=== PATIENT | female | born 1995 | race Two or more races ===

== ENCOUNTER 2018-02-08 12:54 | Outpatient (CLI) | payer OTHER ==
[~2018-02-08 12:54] MED LIST: BENADRYL50 MG
== END 2018-02-09 10:18 | disposition home or self-care (01) ==
LOC: OBS/DEL 12:54
DX: Z34.82 Encounter for supervision of other normal pregnancy, second trimester (principal); S80.02XA Contusion of left knee, initial encounter; S80.01XA Contusion of right knee, initial encounter; W18.39XA Other fall on same level, initial encounter; Y93.89 Activity, other specified; Y92.89 Other specified places as the place of occurrence of the external cause; Y99.8 Other external cause status

== ENCOUNTER 2018-03-08 00:22 | Inpatient (IN) | payer OTHER ==
[~2018-03-08] VITALS: Ht 162.6 cm; Wt 59.0 kg
[2018-03-08] MEDS ORDERED: PRENATAL TABLE1 EAC2 PO (11:14)
== END 2018-03-10 08:21 | disposition home or self-care (01) | DRG 780 ==
LOC: OBS/DEL 00:22 → LDR 10:23 → OB/GYN 03-09 09:18
PROC: BY4DZZZ Ultrasonography of Second Trimester, Multiple Gestation (ICD-10-PCS; principal; 2018-03-08)
PROC: 4A1HXCZ Monitoring of Products of Conception, Cardiac Rate, External Approach (ICD-10-PCS; 2018-03-08)
DX: O47.02 False labor before 37 completed weeks of gestation, second trimester (principal); O30.042 Twin pregnancy, dichorionic/diamniotic, second trimester

== ENCOUNTER 2018-04-02 13:27 | Inpatient (IN) | payer OTHER ==
[~2018-04-02] VITALS: Ht 162.6 cm; Wt 136.0 kg
[~2018-04-02 13:27] MED LIST changes: +PRENATAL TABLE1 EAC2 PO
[2018-04-02] MEDS ORDERED: BENADRYL50 MG PO (13:47)
[2018-04-02] MEDS ORDERED: PRENATABS RX T1 EACH PO (13:47)
[2018-04-08] MEDS ORDERED: NIFEDIPINE ER30 MG PO (07:32)
[2018-04-08] MEDS ORDERED: HYDROXYZINE PAM50 MG PO (07:32)
== END 2018-04-08 09:11 | DRG 780 ==
LOC: OB/GYN 13:27 → LDR 13:27 → OB/GYN 04-03 14:53
PROC: 4A1HXCZ Monitoring of Products of Conception, Cardiac Rate, External Approach (ICD-10-PCS; principal; 2018-04-02)
DX: O47.03 False labor before 37 completed weeks of gestation, third trimester (principal); O23.33 Infections of other parts of urinary tract in pregnancy, third trimester; B96.29 Other Escherichia coli [E. coli] as the cause of diseases classified elsewhere

== ENCOUNTER 2018-04-09 21:14 | Inpatient (IN) | payer OTHER ==
[~2018-04-09] VITALS: Ht 162.6 cm; Wt 1764.0 kg
[~2018-04-09 21:14] MED LIST changes: +BENADRYL50 MG PO; +HYDROXYZINE PAM50 MG PO; +NIFEDIPINE ER30 MG PO; +PRENATABS RX T1 EACH PO
== END 2018-04-17 18:22 | disposition home or self-care (01) | DRG 765 ==
LOC: LDR 21:14 → OB/GYN 21:14
PROVIDERS: Obstetrics & Gynecology
PROC: 4A033R1 Measurement of Arterial Saturation, Peripheral, Percutaneous Approach (ICD-10-PCS; 2018-04-14)
PROC: 4A1HXCZ Monitoring of Products of Conception, Cardiac Rate, External Approach (ICD-10-PCS; 2018-04-14)
PROC: 10D00Z1 Extraction of Products of Conception, Low, Open Approach (ICD-10-PCS; principal; 2018-04-14 12:00)
DX: O14.14 Severe pre-eclampsia complicating childbirth (principal); O30.043 Twin pregnancy, dichorionic/diamniotic, third trimester; O99.02 Anemia complicating childbirth; Z3A.33 33 weeks gestation of pregnancy; Z37.2 Twins, both liveborn